=== PATIENT | female | born 1955 | race Caucasian/White ===

== ENCOUNTER → 2017-07-05 | Outpatient (CLI) | payer OTHER ==
--- NOTE | 2017-07-05 16:30 | MRI ---
EXAM DESCRIPTION: Brain w/o Contrast: MRI. CLINICAL HISTORY: HEADACHE COMPARISON: None. TECHNIQUE: Multiplanar, high-field MRI unit, multiple diffusion sequences, multiple conventional sequences without contrast. FINDINGS: Focal bright T2-weighted signal in the junction of the left posterior parietal and anterior occipital lobes abutting the dural space. This is predominantly low signal on FLAIR sequences with hyperintense T2 and FLAIR signal on the medial surface which is at the level of the occipital horn of the left lateral ventricle. The dimensions of this abnormal signal are 2.2 x 1.4 cm in the axial plane and 1.1 cm craniocaudal. Extra-axial brain changes and loss of skull inner table and medullary portion extending to the outer table of the skull. This area is completely hypointense on T1 sequence and hyperintense on gradient echo sequence. No diffusion restriction. Normal FLAIR and T2-weighted signal in the periventricular white matter, and remaining martel-white matter junctions of the cerebral hemispheres. . Normal signal in the bilateral basal ganglia. No hemorrhage, no cerebral edema, no mass-effect. Normal signal in the brainstem and cerebellar hemispheres. No hemorrhage, no cerebral edema, no mass-effect. Concordance of the diffusion and non-diffusion sequences with no diffusion restriction. Cortical sulci, ventricles, and other CSF spaces, and the other subdural spaces are unremarkable. No effacement or displacement. No midline shift. No extra-axial hemorrhage. Normal flow signal void in the major vessels of the alturas Rousseau, and the venous sinuses. IACs are symmetric bilaterally. Minimal fluid signal in the inferior left mastoid air cells. No mass effect in the bilateral cerebellopontine angles. Pituitary gland occupies approximately 50% of the sella. Base of the cerebellar tonsils is at the level of the foramen magnum. Polyp or mucosal retention cyst in the base of the left maxillary antrum, and mucoperiosteal thickening in the base of the right maxillary antrum.. The bony calvarium is intact. IMPRESSION: 1. Normal study region of signal approximately 2.5 cm greatest diameter in the cortical martel matter of the junction of the posterior left parietal lobe and anterior left occipital lobe which has signal reasonably encephalomalacia with medial gliosis. This tissue also involves the inner table intramedullary segment of the adjacent skull and possibly the outer table of the skull. No evidence of prior craniotomy or surgical clips. Overlying scalp is unremarkable. No diffusion restriction in the intra-axial segment of the lesion. Is there history of prior trauma, malignancy, or other treatment? Consider follow-up study with gadolinium IV contrast. 2. Remainder of the intra-axial brain is unremarkable. Inflammatory changes in the inferior left mastoid air cells. Polyp or mucous retention cyst in the base of the left maxillary antrum and mucoperiosteal thickening in the base of the right antrum. Electronically signed by: Peng Alexis MD 07/05/2017 4:29 PM CDT
== END ==
LOC: MRI 08:42
PROVIDERS: ATTEND Family Medicine
DX: R51 Headache (principal); G44.209 Tension-type headache, unspecified, not intractable; G43.109 Migraine with aura, not intractable, without status migrainosus

== ENCOUNTER → 2017-09-14 | Outpatient (CLI) | payer OTHER | LOC: LAB.O 11:12 | PROVIDERS: ATTEND Psychiatry & Neurology Neurology | DX: I67.9 Cerebrovascular disease, unspecified (principal); K50.90 Crohn's disease, unspecified, without complications; F01.50 Vascular dementia, unspecified severity, without behavioral disturbance, psychotic disturbance, mood disturbance, and anxiety; G30.9 Alzheimer's disease, unspecified; G37.9 Demyelinating disease of central nervous system, unspecified; M54.12 Radiculopathy, cervical region; E11.9 Type 2 diabetes mellitus without complications; M15.0 Primary generalized (osteo)arthritis; M33.90 Dermatopolymyositis, unspecified, organ involvement unspecified; R50.9 Fever, unspecified; I77.9 Disorder of arteries and arterioles, unspecified; E55.9 Vitamin D deficiency, unspecified; E53.8 Deficiency of other specified B group vitamins; G25.89 Other specified extrapyramidal and movement disorders; G61.81 Chronic inflammatory demyelinating polyneuritis; M33.22 Polymyositis with myopathy; M35.3 Polymyalgia rheumatica; M81.8 Other osteoporosis without current pathological fracture; M54.81 Occipital neuralgia; G70.00 Myasthenia gravis without (acute) exacerbation; G04.89 Other myelitis; M31.6 Other giant cell arteritis; G50.0 Trigeminal neuralgia ==

== ENCOUNTER 2017-10-25 04:55 | Day surgery (SDC) | payer OTHER ==
[2017-10-25] MEDS ORDERED: LACTATED RINGERS 1,000 ML ONE (06:43)
--- NOTE | 2017-10-25 09:23 | OP ---
DATE OF PROCEDURE: 10/25/17 PREPROCEDURE DIAGNOSIS: 1. Average risk colon cancer screening. POSTPROCEDURE DIAGNOSIS: 1. Colonic polyp. PROCEDURE: 1. Colonoscopy with snare polypectomy. SURGEON: Javad Giordano MD. SEDATION: Monitored anesthesia care. ESTIMATED BLOOD LOSS: 0 mL. PROCEDURE: Informed consent was obtained prior to sedation. The preprocedure cardiopulmonary assessment was satisfactory. The patient was brought to the Endoscopy Suite and placed in the left lateral decubitus position. The patient was then sedated by the anesthesia team. Digital rectal and perianal exams were normal. The tip of the Olympus colonoscope was inserted into the rectum and advanced under direct visualization to the cecum as identified by the presence of the appendiceal orifice and ileocecal valve. Preparation of the colon was good. Upon reaching the cecum, the endoscope was slowly withdrawn from the patient with careful attention paid to the entire colonic mucosa for the identification of any flat polyps or small vascular lesions. In the hepatic flexure, there was a 1 cm sessile polyp which was resected with hot snare polypectomy and retrieved for pathology. Examination of the remaining portion of the colon was normal. Retroflexed view of the anal verge showed no abnormalities. The endoscope was then withdrawn from the patient and the procedure terminated. RECOMMENDATION: 1. Discharge the patient home with escort. 2. Resume regular diet. 3. Continue present medications. 4. Followup pathology. 5. Surveillance colonoscopy in 3 years' time due to the size of the polyp being greater than 1 cm. #[id number] [facility]
[2017-10-25] MEDS ORDERED: PROPOFOL 200 MG/20 ML VIAL IV ONE (10:00)
[2017-10-25 11:01] VITALS: BP 102/64; TEMP 97.1; O2SAT 99
== END 2017-10-25 10:05 | disposition home or self-care (01) ==
LOC: AMB 04:55
PROVIDERS: ATTEND Internal Medicine Gastroenterology
DX: Z12.11 Encounter for screening for malignant neoplasm of colon (principal); D12.3 Benign neoplasm of transverse colon; G43.909 Migraine, unspecified, not intractable, without status migrainosus; Z88.2 Allergy status to sulfonamides; Z79.899 Other long term (current) drug therapy
CPT/HCPCS: 00812; 45385; J3490; J7120